=== PATIENT | male | born 1980 | race Two or more races ===

== ENCOUNTER 2021-04-15 21:01 | Emergency (ER) | payer OTHER ==
[~2021-04-15] VITALS: Ht 175.3 cm; Wt 74.8 kg
--- NOTE | 2021-04-15 21:14 | NUR ---
Patient walked in to ER with c/o spider bite on left hip with drainage and noted with redness. Pt A/O x4, no SOB or labored breathing, afebrile. No c/o chest pain/pressure. All pulses palpable, no edema noted in extremities. No c/o GI/ distress. Pt states it happened 5 days ago and he went to [facility] and was prescribed ATB clindamycin. Bed in lowest position, educated on safety precautions and verbalized understanding.
--- NOTE | 2021-04-15 21:29 | NUR ---
Dr. Monteiro at bedside, MSE in progress.
[2021-04-15] MEDS ORDERED: CLIN150C16 PO (21:39)
[2021-04-15] MEDS ORDERED: VANCOMYCIN 1G/D5W 200 ML PIGGYBACK IV ONE (21:45)
[2021-04-15] MEDS ORDERED: VANCOMYCIN IV 200 ML ONE (22:02)
[2021-04-15 22:11] LABS: BASOPHILS # (AUTO) 0.1 K/uL (0.0-8.0); BASOPHILS % (AUTO) 0.7 % (0.0-2.0); EOSINOPHILS # (AUTO) 0.2 K/uL (0.0-0.7); EOSINOPHILS % (AUTO) 2.4 % (0.0-7.0); HEMATOCRIT 42.4 % (36.7-47.1); HEMOGLOBIN 14.3 g/dL (12.5-16.3); LYMPHOCYTES # (AUTO) 2.8 K/uL (20.0-40.0); LYMPHOCYTES % (AUTO) 26.4 % (20.5-51.5); MEAN CORPUSCULAR HEMOGLOBIN 29.6 uug (23.8-33.4); MEAN CORPUSCULAR HGB CONC 34 g/dL (32.5-36.3); MEAN CORPUSCULAR VOLUME 87.4 fL (73.0-96.2); MONOCYTES # (AUTO) 0.9 K/uL (2.0-10.0); MONOCYTES % (AUTO) 8.3 % (0.0-11.0); NEUTROPHILS # (AUTO) 6.5 K/uL (1.8-8.9); NEUTROPHILS % (AUTO) 62.2 % (38.5-71.5); PLATELET COUNT (AUTO) 304 K/uL (152-348); RED BLOOD CELL COUNT(AUTO) 4.84 MIL/uL (4.06-5.63); WHITE BLOOD COUNT (AUTO) 10.4 K/uL (3.6-10.2)
[2021-04-15 22:14] LABS: CREATININE 1.1 mg/dL (0.6-1.3); POTASSIUM 3.7 mmol/L (3.5-5.1)
[2021-04-15] MEDS ORDERED: IV NORMAL SALINE 250 ML IV ONE (22:45)
[2021-04-15] MEDS ORDERED: SWABABLE VALVE TRANSFER SET EA MC ONE (22:45)
[2021-04-15] MEDS ORDERED: IOHEXOL 300MG/ML 100 ML INFUS..BTL ONE (22:45)
--- NOTE | 2021-04-15 23:15 | NUR ---
Pt taken for CT.
--- NOTE | 2021-04-15 23:34 | NUR ---
Pt came back from CT, stable condition.
[2021-04-16] MEDS ORDERED: LIDOCAINE 1%-EPI 1:100,000 20 ML VIAL IJ ONE (01:30)
[2021-04-16] MEDS ORDERED: IBUP-1955 PO (02:57)
--- NOTE | 2021-04-16 03:10 | NUR ---
Patient discharged to home in stable condition, A/O x4, no SOB or labored breathing. Afebrile. No c/o pain or discomfort, steady gait. Written and verbal after care instructions given. Patient verbalizes understanding of instructions. Stressed follow up or return to ER for worsening s/s.
[2021-04-16 03:11] VITALS: BP 141/71
== END 2021-04-16 03:12 | disposition home or self-care (01) ==
LOC: ER 21:04
DX: L02.416 Cutaneous abscess of left lower limb (principal); L03.116 Cellulitis of left lower limb; Z20.822 Contact with and (suspected) exposure to COVID-19
CPT/HCPCS: 10060; 36415; 73701; 80048; 83605; 85025; 87040; 87426; 96365; 99285; J3370; J3490; Q9967; A4217; A4663; J7050

== ENCOUNTER 2021-04-17 22:56 | Emergency (ER) | payer OTHER ==
[~2021-04-17] VITALS: Ht 175.3 cm; Wt 74.8 kg
[~2021-04-17 22:56] MED LIST: CLIN150C16 PO; IBUP-1955 PO
--- NOTE | 2021-04-17 23:08 | NUR ---
Pt came in to ER with c/o wound check on left hip from "spider bite". A/O x4, no SOB or labored breathing, afebrile. Slight redness, no drainage on wound site. Dr. Solis at bedside MSE in progress.
--- NOTE | 2021-04-17 23:20 | NUR ---
Patient given written and verbal discharge instructions. Patient verbalizes understanding of instructions. Patient is ambulatory with steady gait. Pt given homeless packet, refused all resources and services at this time. A/O x4, no c/o pain or discomfort. Wound covered in clean, dry dressing.
[2021-04-17 23:25] VITALS: BP 127/92
== END 2021-04-17 23:25 | disposition home or self-care (01) ==
LOC: ER 22:57
DX: L02.416 Cutaneous abscess of left lower limb (principal); Z59.0 Homelessness
CPT/HCPCS: A4663

== ENCOUNTER 2021-06-02 02:52 | Emergency (ER) | payer OTHER ==
[~2021-06-02] VITALS: Ht 175.3 cm; Wt 74.8 kg
--- NOTE | 2021-06-02 03:03 | NUR ---
DR RICCI AT BEDSIDE FOR MSE.
[2021-06-02] MEDS ORDERED: SULFAMETH/TRIMETH 800/160 MG TABLET ONE (03:28)
[2021-06-02] MEDS ORDERED: HYDROCODONE/APAP 10-325 MG TABLET ONE (03:28)
--- NOTE | 2021-06-02 03:29 | NUR ---
Pt refused I&D by MD on his L Hip/Thigh wound/abscess. MD drained some of the pus from the wound manually. RN was instructed to clean area and cover with bandage. Done, tolerated well by patient. PO medications ordered, patient informed that re-assessment for pain needs to be done prior DC, but patient stated that he has to appear in court. Pt has a friend waiting for him, to drive him to their makeshift home. Patient discharged to home in stable condition. Written and verbal after care instructions given. Patient verbalizes understanding of instructions. Stressed follow up or return to ER for worsening s/s. Refuses offer of [facility]pc placement. Patient given list of available shelters in surrounding area. Homeless waiver signed. Patient is ambulatory with steady gait, left ED in stable condition.
[2021-06-02] MEDS ORDERED: SULFAMETH/TRIMETH 800/160 MG TABLET PO ONE (03:30)
[2021-06-02] MEDS ORDERED: LIDOCAINE HCL 2% 20 ML VIAL TP ONE (03:30)
[2021-06-02] MEDS ORDERED: HYDROCODONE/APAP 10-325 MG TABLET PO ONE (03:30)
[2021-06-02 03:32] VITALS: BP 120/70
== END 2021-06-02 03:32 | disposition home or self-care (01) ==
LOC: ER 02:52
DX: L02.416 Cutaneous abscess of left lower limb (principal)
CPT/HCPCS: A4663

== ENCOUNTER 2021-06-26 04:28 | Emergency (ER) | payer OTHER ==
[~2021-06-26] VITALS: Ht 175.3 cm; Wt 74.8 kg
[2021-06-26] MEDS ORDERED: SULF1TAB48 PO (05:00)
[2021-06-26] MEDS ORDERED: HYDR-3980 PO (05:00)
[2021-06-26] MEDS ORDERED: SULFAMETH/TRIMETH 800/160 MG TABLET PO ONE (05:00)
[2021-06-26] MEDS ORDERED: HYDROCODONE/APAP 10-325 MG TABLET PO ONE (05:00)
[2021-06-26] MEDS ORDERED: HYDROCODONE/APAP 10-325 MG TABLET ONE (05:06)
[2021-06-26] MEDS ORDERED: SULFAMETH/TRIMETH 800/160 MG TABLET ONE (05:07)
--- NOTE | 2021-06-26 05:10 | NUR ---
Patient discharged to home in stable condition with friend taking patient home. Written and verbal after care instructions given. Patient verbalizes understanding of instructions. Stressed follow up or return to ER for worsening s/s.
[2021-06-26 05:11] VITALS: BP 125/66
== END 2021-06-26 05:12 | disposition home or self-care (01) ==
LOC: ER 04:32
DX: L08.9 Local infection of the skin and subcutaneous tissue, unspecified (principal); B95.62 Methicillin resistant Staphylococcus aureus infection as the cause of diseases classified elsewhere; Z16.11 Resistance to penicillins; Z59.0 Homelessness
CPT/HCPCS: 87070; 87077; A4663

== ENCOUNTER 2021-10-28 00:34 | Emergency (ER) | payer OTHER ==
[~2021-10-28] VITALS: Ht 175.3 cm; Wt 77.1 kg
[~2021-10-28 00:34] MED LIST changes: +CLIN-118 PO; -CLIN150C16 PO; +HYDR-3980 PO; +SULF1TAB48 PO
[2021-10-28] MEDS ORDERED: HYDR-3980 PO (01:05)
--- NOTE | 2021-10-28 01:16 | NUR ---
Patient given written and verbal discharge instructions. Patient verbalizes understanding of instructions. Patient is ambulatory with steady gait. Refuses offer of group home placement. Patient given list of available shelters in surrounding area. Patient refused to sign homeless paper. A/Ox4. Able to ambulate with steady gait.
[2021-10-28 02:18] VITALS: BP 120/69
== END 2021-10-28 02:18 | disposition home or self-care (01) ==
LOC: ER 00:37
DX: M67.441 Ganglion, right hand (principal); R00.0 Tachycardia, unspecified; Z79.899 Other long term (current) drug therapy
CPT/HCPCS: 73130; A4663

== ENCOUNTER 2021-11-25 01:50 | Emergency (ER) | payer OTHER ==
[~2021-11-25] VITALS: Ht 175.3 cm; Wt 74.8 kg
--- NOTE | 2021-11-25 02:04 | NUR ---
AFTER BEING TRIAGED PATIENT WAS PLACED BACK IN WAITING ROOM DUE TO NO BEDS AVAILABLE.
[2021-11-25] MEDS ORDERED: CLOT10TR PO (03:02)
--- NOTE | 2021-11-25 03:04 | NUR ---
Patient discharged to home in stable condition. Written and verbal after care instructions given. Patient verbalizes understanding of instructions. Stressed follow up or return to ER for worsening s/s. Patient ambulated with steady gait.
[2021-11-25 03:06] VITALS: BP 110/73
== END 2021-11-25 03:06 | disposition home or self-care (01) ==
LOC: ER 01:54
DX: B37.0 Candidal stomatitis (principal); Z20.822 Contact with and (suspected) exposure to COVID-19; Z59.00 Homelessness unspecified
CPT/HCPCS: 86403; 87070; A4663